=== PATIENT | male | born 1975 | race Two or more races ===

== ENCOUNTER 2022-07-30 09:58 | Emergency (ER) | payer OTHER ==
[~2022-07-30] VITALS: Ht 177.8 cm; Wt 90.7 kg
--- NOTE | 2022-07-30 10:00 | NUR ---
[place] 79 [place]GF CALLEDAFTER HE WAS "TRASHING HIS PLACE" AFTER TAKING UNKNOWN SUBSTANCE,TACHYPNEIC/TACHYCARDIC UPON ARRIVAL,[id number]
[2022-07-30] MEDS ORDERED: NALOXONE PREFILLED SYRINGE 2 MG/2 ML SYRINGE ONE (10:05)
--- NOTE | 2022-07-30 10:05 | NUR ---
at bedside for eval
[2022-07-30] MEDS ORDERED: LORAZEPAM INJ 2 MG/ML VIAL ONE ×2 (10:08→10:29)
--- NOTE | 2022-07-30 10:21 | NUR ---
IV LEFT FOREARM 18 G ,
[2022-07-30] MEDS ORDERED: IV NS 0.9% 1,000 ML IV ONE (10:30)
[2022-07-30] MEDS ORDERED: LORAZEPAM INJ 2 MG/ML VIAL IV ONE ×2 (10:30)
[2022-07-30] MEDS ORDERED: NALOXONE HCL 0.4 MG/ML AMPUL IV ONE (10:30)
[2022-07-30 10:46] LABS: SERUM AMMONIA 152 umol/L (11-32)
--- NOTE | 2022-07-30 11:04 | NUR ---
RESTING COMFORTABLY , NO SIGNS AND SYMPTOMS OF DISTRESS. RISE AND FALL OF CHEST NOTED. VITAL SIGNS STABLE .
[2022-07-30 11:05] LABS: ALANINE AMINOTRANSFERASE 21 U/L (12-78); ALBUMIN 4.5 g/dL (3.4-5.0); ALKALINE PHOSPHATASE 89 U/L (46-116); ASPARTATE AMINOTRANSFERASE 16 U/L (15-37); BILIRUBIN,DIRECT 0.1 mg/dL (0.0-0.2); BILIRUBIN,TOTAL 0.4 mg/dL (0.2-1.0); CARBON DIOXIDE 14 mmol/L (21-32); CHLORIDE 104 mmol/L (98-107); CREATININE 1.8 mg/dL (0.6-1.3); GLUCOSE 275 mg/dL (74-106); POTASSIUM 3.6 mmol/L (3.5-5.1); SODIUM SERUM 145 mmol/L (136-145); TOTAL PROTEIN, SERUM 8.4 g/dL (6.4-8.2); UREA NITROGEN, BLOOD 7 mg/dL (7-18)
[2022-07-30 11:06] LABS: ALCOHOL, BLOOD < 3 mg/dL (0-10)
[2022-07-30 11:07] LABS: THYROID STIMULATING HORMONE 0.944 uIU/mL (0.358-3.74)
[2022-07-30 11:12] LABS: MAGNESIUM 2.6 mg/dL (1.8-2.4)
[2022-07-30 11:12] LABS: BILIRUBIN,URINE 1+ (NEGATIVE); COLOR,URINE DARK YELLOW (YELLOW); LEUKOCYTE ESTERASE ,URINE NEGATIVE (NEGATIVE); NITRITE, URINE NEGATIVE (NEGATIVE); PROTEIN,URINE 2+ mg/dl (NEGATIVE); UGLUCOSE NEGATIVE (NEGATIVE); UROBILINOGEN,URINE 0.2 EU/dL (0.2)
[2022-07-30 11:17] LABS: BACTERIA,URINE Rare /HPF (None Seen); RBC,URINE 0-2 /HPF (0-2); SQUAMOUS EPITHELIAL CELL,UR Few /HPF (None Seen); WBC,URINE 0-2 /HPF (0-3)
[2022-07-30 11:19] LABS: BASOPHILS # (AUTO) 0.1 K/uL (0.0-0.2); BASOPHILS % (AUTO) 1.3 % (0.0-2.0); EOSINOPHILS % (AUTO) 2.3 % (0.0-6.0); HEMATOCRIT 49 % (39-51); HEMOGLOBIN 16.3 g/dL (13.5-17.5); LYMPHOCYTES # (AUTO) 1.7 K/uL (0.8-4.8); LYMPHOCYTES % (AUTO) 15.5 % (20.0-44.0); MEAN CORPUSCULAR HGB CONC 33 g/dl (31.0-36.0); MEAN CORPUSCULAR VOLUME 90 fL (80-96); MONOCYTES # (AUTO) 0.5 K/uL (0.1-1.30); MONOCYTES % (AUTO) 4.1 % (2.0-12.0); NEUTROPHILS # (AUTO) 8.6 K/uL (1.8-8.9); NEUTROPHILS % (AUTO) 76.8 % (43.0-81.0); PLATELET COUNT (AUTO) 294 K/uL (150-450); RED BLOOD CELL COUNT(AUTO) 5.46 MIL/uL (4.5-6.0); WHITE BLOOD COUNT (AUTO) 11.2 K/uL (4.3-11.0)
[2022-07-30] MEDS ORDERED: LACTULOSE 10 G/15 ML UDC (PYXIS) GT ONE (16:00)
--- NOTE | 2022-07-30 16:02 | NUR ---
AOX4 AT THIS MOMENT . NO SIGNS AND SYMPTOMS OF DISTRESS
[2022-07-30] MEDS ORDERED: LACTULOSE 10 G/15 ML UDC (PYXIS) ONE (16:20)
[2022-07-30] MEDS ORDERED: LACTULOSE 10 G/15 ML UDC (PYXIS) PO ONE (16:30)
--- NOTE | 2022-07-30 17:15 | NUR ---
IV removed. Catheter intact and site benign. Pressure and 4x4 applied to site. No bleeding noted. Patient discharged to home in stable condition. Written and verbal after care instructions REFUSED BY THE PATIENT- DID NOT SIGN DISCHARGE PAPER.
[2022-07-30 17:31] VITALS: BP 150/95
== END 2022-07-30 17:15 | disposition home or self-care (01) ==
LOC: ER 10:36
DX: T50.991A Poisoning by other drugs, medicaments and biological substances, accidental (unintentional), initial encounter (principal); R41.82 Altered mental status, unspecified; R06.02 Shortness of breath; Y92.89 Other specified places as the place of occurrence of the external cause
CPT/HCPCS: 99285; 96374; 96361; 96375; 93005; 71045; 70450; 82140; 85025; 80048; 80076; 83735; 81001; 36415; 84439; 84443; 84484; 85730; 82962; 80143; 80320; 80307; J2060 ×2; J7030; A4223; J2310; G0480